=== PATIENT | female | born 1965 | race American Indian/Alaskan Native ===

== ENCOUNTER 2021-04-03 21:31 | Inpatient (IN) | payer MEDICARE ==
[2021-04-03] MEDS ORDERED: ASPIRIN 325 MG TAB PO ONE (23:58)
[2021-04-04] MEDS ORDERED: methylPREDNISolone Sod Succinate 125 MG/2 ML INJ IV ONE (00:50)
[2021-04-04] MEDS ORDERED: AZITHROMYCIN/NS 500 MG/250 ML 500 MG/250 ML BAG IV ONE (00:50)
[2021-04-04] MEDS ORDERED: cefTRIAXone/NS 2 GM/100 ML 2 GM/100 ML BAG IV ONE (00:50)
[2021-04-04] MEDS ORDERED: IPRATROPIUM/ALBUTEROL SULFATE 3 ML AMPUL.NEB IH ONE (00:50)
--- NOTE | 2021-04-04 00:51 | Emergency Department Report ---
ED Chest Pain HPI - General Chief Complaint: Dyspnea/Respdistress Stated Complaint: SERENITY;CHF;OXYGEN DEPENDENT PUI?: No Time Seen by Provider: 04/04/21 00:43 Source: patient Mode of arrival: Ambulatory Limitations: Other - History of Present Illness Initial Comments: Patient is a 55-year-old female that presents emergency room with complaints of chest pain, difficulty breathing, chills, cough, congestion. Patient states that her pain is a 5 out of 10. Patient states she has had part one of her COVID-19 vaccine. Patient complains of fever. Patient denies nausea vomiting. Patient states that her shortness of breath is better with rest and worse with exertion. Patient states she is on 4 L of oxygen at home. Patient states she has a history of CHF and COPD. Patient denies recent travel. Patient denies recent international travel. Patient denies exposure to the novel coronavirus. Patient denies sick contacts. Patient denies loss of smell.. Patient denies diarrhea. Patient denies coming in contact with anybody with symptoms of the novel coronavirus. MD Complaint: chest pain -: Sudden Onset: during rest Pain Location: left chest Pain Radiation: none Severity: severe Severity scale (0 -10): 10 Quality: sharp Consistency: constant Improves With: rest Worsens With: exertion, palpation, movement re: dyspnea. denies: nausea, vomting, diaphoresis Other Symptoms: cough, fever, palpitations. denies: syncope, rash, acid taste in mouth, leg swelling, burping Treatments Prior to Arrival: none Aspirin use within the Past 7 Days: (1) Yes - Related Data On Oral Contraceptives: No Home Medications Medication Instructions Recorded Confirmed Last Taken Norethindrone Acetate(Nf) 5 mg PO BID 08/01/13 06/11/20 12/08/19 10:00 [Aygestin (Nf)] Macitentan (Nf) [Opsumit (Nf)] 10 mg PO QDAY 02/13/14 06/11/20 12/08/19 10:00 Bumetanide [Bumex 1 mg tab] 1 mg PO DAILY 08/28/14 06/11/20 12/08/19 10:00 HYDROcodone/APAP 5-325 [[place] 5 mg PO Q6HR PRN 08/13/15 08/05/20 02/01/20 10:00 5-325 mg TAB] Omeprazole [PriLOSEC] 40 mg PO QDAY PRN 06/19/15 06/11/20 12/08/19 08:00 Zolpidem (Nf) [Ambien (Nf)] 10 mg PO QHS 06/19/15 06/11/20 Unknown Norethindrone Acetate [Aygestin] 5 mg PO DAILY 12/10/19 06/11/20 12/10/19 Macitentan [Opsumit] 10 mg PO QDAY 06/11/20 06/11/20 06/11/20 14:00 Potassium Chloride [K-Dur] 10 meq PO QDAY 06/11/20 06/11/20 06/11/20 14:00 Previous Rx's Medication Instructions Recorded Last Taken Type Ipratropium/Albuterol Sulfate 1 ampul IH Q6HRT #90 ampul.neb 12/11/19 Unknown Rx [DUONEB *Not for PRN Use*] Oseltamivir [Tamiflu] 75 mg PO BID #8 capsule 12/11/19 Unknown Rx ALPRAZolam [Xanax TAB] 0.5 mg PO BID #7 06/12/20 Unknown Rx Warfarin [Coumadin] 7.5 mg PO DAILY@1700 #10 tablet 06/12/20 Unknown Rx predniSONE [Deltasone] 40 mg PO QDAY #5 tablet 06/12/20 Unknown Rx Allergies Allergy/AdvReac Type Severity Reaction Status Date / Time No Known Allergies Allergy Verified 08/28/14 10:49 Heart Score - HEART Score History: Slightly suspicious EKG: Non-specific Age: 45-65 Risk factors: > 3 risk factors or hx of atherosclerotic disease Troponin: < normal limit HEART Score: 4 - EKG Read Time Time EKG Completed: 00:07 EKG Read Time: 00:09 ED Review of Systems ROS: Stated complaint: SERENITY;CHF;OXYGEN DEPENDENT Other details as noted in HPI Constitutional: chills, fever Eyes: denies: eye pain, eye discharge, vision change ENT: denies: ear pain, throat pain Respiratory: see HPI, cough, shortness of breath, SOB with exertion, SOB at rest. denies: wheezing Cardiovascular: as per HPI, chest pain. denies: palpitations Endocrine: no symptoms reported Gastrointestinal: denies: abdominal pain, nausea, diarrhea Genitourinary: denies: urgency, dysuria, discharge Musculoskeletal: denies: back pain, joint swelling, arthralgia Skin: denies: rash, lesions Neurological: denies: headache, weakness, paresthesias Psychiatric: denies: anxiety, depression Hematological/Lymphatic: denies: easy bleeding, easy bruising ED Past Medical Hx - Past Medical History Previous Medical History?: Yes Hx Hypertension: Yes Hx Heart Attack/AMI: No Hx Congestive Heart Failure: Yes Hx Diabetes: No Hx Deep Vein Thrombosis: No Hx Pulmonary Embolism: No Hx Sickle Cell Disease: No Hx Asthma: No Hx COPD: Yes Hx Tuberculosis: No Hx HIV: No Additional medical history: hx of a.fib, chronic anemia with transfusion - Surgical History Past Surgical History?: Yes Hx Coronary Stent: No Hx Open Heart Surgery: No Hx Pacemaker: No Hx Internal Defibrillator: No Hx Cholecystectomy: No Hx Appendectomy: No Hx Breast Surgery: No Additional Surgical History: Exploratory surgery 1999 - Family History Family history: no significant - Social History Smoking Status: Never Smoker Substance Use Type: None - Medications Home Medications: Home Medications Medication Instructions Recorded Confirmed Last Taken Type Norethindrone Acetate(Nf) 5 mg PO BID 08/01/13 06/11/20 12/08/19 10:00 History [Aygestin (Nf)] Macitentan (Nf) [Opsumit (Nf)] 10 mg PO QDAY 02/13/14 06/11/20 12/08/19 10:00 History Bumetanide [Bumex 1 mg tab] 1 mg PO DAILY 08/28/14 06/11/20 12/08/19 10:00 History HYDROcodone/APAP 5-325 [[place] 5 mg PO Q6HR PRN 06/19/15 06/11/20 12/08/19 10:00 History 5-325 mg TAB] Omeprazole [PriLOSEC] 40 mg PO QDAY PRN 06/19/15 06/11/20 12/08/19 08:00 History Zolpidem (Nf) [Ambien (Nf)] 10 mg PO QHS 06/19/15 06/11/20 Unknown History Norethindrone Acetate [Aygestin] 5 mg PO DAILY 12/10/19 06/11/20 12/10/19 History Ipratropium/Albuterol Sulfate 1 ampul IH Q6HRT #90 ampul.neb 12/11/19 06/11/20 Unknown Rx [DUONEB *Not for PRN Use*] Oseltamivir [Tamiflu] 75 mg PO BID #8 capsule 12/11/19 06/11/20 Unknown Rx Macitentan [Opsumit] 10 mg PO QDAY 06/11/20 06/11/20 06/11/20 14:00 History Potassium Chloride [K-Dur] 10 meq PO QDAY 06/11/20 06/11/20 06/11/20 14:00 History ALPRAZolam [Xanax TAB] 0.5 mg PO BID #7 06/12/20 Unknown Rx Warfarin [Coumadin] 7.5 mg PO DAILY@1700 #10 tablet 06/12/20 Unknown Rx predniSONE [Deltasone] 40 mg PO QDAY #5 tablet 06/12/20 Unknown Rx ED Physical Exam - General Limitations: Other General appearance: alert, in no apparent distress - Head Head exam: Present: atraumatic, normocephalic - Eye Eye exam: Present: normal appearance - ENT ENT exam: Present: mucous membranes moist - Neck Neck exam: Present: normal inspection - Respiratory Respiratory exam: Present: wheezes, rales, decreased breath sounds - Cardiovascular Cardiovascular Exam: Present: regular rate, normal rhythm. Absent: systolic murmur, diastolic murmur, rubs, gallop - GI/Abdominal GI/Abdominal exam: Present: soft, normal bowel sounds - Extremities Exam Extremities exam: Present: normal inspection - Back Exam Back exam: Present: normal inspection - Neurological Exam Neurological exam: Present: alert, oriented X3 - Psychiatric Psychiatric exam: Present: normal affect, normal mood - Skin Skin exam: Present: warm, dry, intact, normal color. Absent: rash ED Course Vital Signs 04/03/21 04/04/21 04/04/21 23:55 00:51 01:01 Temperature 99.7 F H Pulse Rate 96 H 88 85 Respiratory 18 22 24 Rate Blood Pressure 118/60 133/65 O2 Sat by Pulse 100 100 100 Oximetry 04/04/21 04/04/21 04/04/21 01:10 01:15 01:31 Temperature Pulse Rate 85 83 Respiratory 22 24 23 Rate Blood Pressure 131/63 117/63 O2 Sat by Pulse 98 97 Oximetry 05/04/04/21 04/04/21 02:01 03:01 04:01 Temperature Pulse Rate 88 129 H 130 H Respiratory 25 H 12 21 Rate Blood Pressure 122/67 135/63 107/53 O2 Sat by Pulse 91 89 94 Oximetry 04/04/21 04/04/21 04:26 04:41 Temperature 98.5 F 98.6 F Pulse Rate 79 74 Respiratory 20 20 Rate Blood Pressure 113/58 116/61 O2 Sat by Pulse 99 98 Oximetry - Reevaluation(s) Reevaluation #1: Patient is resting comfortably in bed. Patient's saturations improved on oxygen. 04/04/21 01:30 Reevaluation #2: I discussed all results with patient. I discussed plan of care with patient. Patient agrees with plan of care and admission. Patient to be admitted to the hospitalist service. 04/04/21 03:31 - Consultations Consultation #1: Hospitalist consulted for admission. Hospitalist to admit patient. 04/04/21 03:31 Consultation #2: ID consulted. 04/04/21 03:31 MAGI score - Magi Score Age > 65: (0) No Aspirin use within the Past 7 Days: (0) No 3 or more CAD Risk Factors: (0) No 2 or more Angina events in past 24 hrs: (0) No Known CAD with more than 50% Stenosis: (0) No Elevated Cardiac Markers: (0) No ST Deviation Greater than 0.5mm: (0) No MAGI Score: 0 ED Medical Decision Making - Lab Data Result diagrams: 04/04/21 00:27 04/04/21 03:30 - EKG Data -: EKG Interpreted by Me EKG shows normal: sinus rhythm, axis, intervals, QRS complexes, ST-T waves Rate: normal - Radiology Data Radiology results: report reviewed, image reviewed interpreted by me: Chest x-ray: No pneumonia, no pneumothorax, no foreign body, no osseous findings, no acute findings CHEST 1 VIEW INDICATION: chestpain COMPARISON: 06/10/2020 FINDINGS: SUPPORT DEVICES: None. HEART / MEDIASTINUM: No significant abnormality. Dilatation of the pulmonary arteries are again noted LUNGS / PLEURA: No significant pulmonary or pleural abnormality. No pneumothorax. ADDITIONAL FINDINGS: IMPRESSION: 1. Pulmonary arterial hypertension is a concern unchanged from previous exam - Medical Decision Making Patient is a 55-year-old female presents emergency room with complaints of chest pain and shortness of breath. Patient has a history of COPD and CHF. Patient Solu-Medrol. Patient is currently on treatment. Patient also complained of fever and cough. Patient given Ceftin Zithromax. Patient had a Covid panel done. ID was consulted. Patient had labs done which were essentially unremarkable except for elevated Covid markers and anemia.. Patient's BNP was negative patient's troponin was negative. Patient's chest x-ray is negative for acute findings. Patient had an EKG done. Patient's EKG shows no acute findings and normal ST. I personally reviewed the EKG and the x-rays. Patient/family hypoxic patient was placed on fibrillation O2. Patient's normal state for years. Patient typed and screen for 1 unit. Critical care time documented due to the multiple reassessments, prolonged time at the bedside, interpretation of diagnostics and labs. - Differential Diagnosis COPD exacerbation, ACS, chest pain, SoB, hypoxia, CHF exacerbation Critical Care Time: Yes Critical care time in (mins) excluding proc time.: 35 Critical care attestation.: If time is entered above; I have spent that time in minutes in the direct care of this critically ill patient, excluding procedure time. Critical Care Time: 35 minutes ED Disposition Clinical Impression: SOB (shortness of breath), Hypoxia, COPD exacerbation, Person under inve stigation for COVID-19, Cough Anemia Qualifiers: Anemia type: unspecified type Qualified Code(s): D64.9 - Anemia, unspecified Chest pain Qualifiers: Chest pain type: unspecified Qualified Code(s): R07.9 - Chest pain, unspecified Fever Qualifiers: Fever type: unspecified Qualified Code(s): R50.9 - Fever, unspecified Disposition: OP ADMIT IP TO THIS HOSP Is pt being admited?: Yes Does the pt Need Aspirin: No Condition: Critical Time of Disposition: 03:30
[2021-04-04 01:01] LABS: Mean Corpuscular HGB Conc 28 % (30-34); Red Blood Count 4.12 M/mm3 (3.65-5.03)
[2021-04-04 01:03] LABS: Hematocrit 25.3 % (30.3-42.9); Mean Corpuscular Volume 61 fl (79-97); Platelet Count 87 K/mm3 (140-440); Red Cell Distribution Width 31.6 % (13.2-15.2)
--- NOTE | 2021-04-04 01:17 | XRay Report ---
CHEST 1 VIEW INDICATION: chestpain COMPARISON: 06/10/2020 FINDINGS: SUPPORT DEVICES: None. HEART / MEDIASTINUM: No significant abnormality. Dilatation of the pulmonary arteries are again noted LUNGS / PLEURA: No significant pulmonary or pleural abnormality. No pneumothorax. ADDITIONAL FINDINGS: IMPRESSION: 1. Pulmonary arterial hypertension is a concern unchanged from previous exam Signer Name: Jn Naqvi MD Signed: 04/04/2021 1:13 AM Workstation Name: [id number]
[2021-04-04 01:25] LABS: Alanine Aminotransferase 12 units/L (7-56); BUN/Creatinine Ratio 11; Blood Urea Nitrogen 10 mg/dL (7-17); Hemolysis Index 0
[2021-04-04 01:42] LABS: Total Cells Counted 100
[2021-04-04 01:43] LABS: Anisocytosis 3+; Hypochromasia 3+
[2021-04-04 01:44] LABS: Large Platelets Few; Ovalocytes Few; Platelet Estimate Consistent w Auto; Poikilocytosis 1+; Tear Drop Cells Rare
[2021-04-04] MEDS ORDERED: SODIUM CHLORIDE 0.9% 500 ML 500 ML IV ONE (03:26)
[2021-04-04] MEDS ORDERED: ACETAMINOPHEN 325 MG TAB PO PRN (03:55)
[2021-04-04] MEDS ORDERED: ALBUTEROL 2.5 MG/3 ML NEBU IH PRN (03:55)
[2021-04-04] MEDS ORDERED: ONDANSETRON 4 MG/2 ML INJ IV PRN (03:55)
[2021-04-04] MEDS ORDERED: hydrALAZINE 20 MG/1 ML INJ IV PRN (03:58)
[2021-04-04] MEDS ORDERED: cefTRIAXone/NS 2 GM/100 ML 2 GM/100 ML BAG IV SCH (04:00)
--- NOTE | 2021-04-04 04:08 | History and Physical Report ---
History of Present Illness Date of examination: 04/04/21 Date of admission: 04/04/21 03:28 Chief complaint: Dyspnea Respiratory distress History of present illness: 55-year-old female with past medical history of CHF and COPD was brought to the emergency room with complaints of chest pain, difficulty breathing, chills, cough, congestion for the last couple of days. patient chest pain is a 5 out of 10. Patient states she has had part one of her COVID-19 vaccine. Patient complains of fever. Patient denies nausea vomiting. Patient states that her shortness of breath is better with rest and worse with exertion. Patient states she is on 4 L of oxygen at home. In the emergency room patient is found to have acute COPD exacerbation also patient is admitted for PUI. Also patient hemoglobin is 7.0 and hematocrit 25.3 Past History Past Medical History: COPD, heart failure Medications and Allergies Allergies Allergy/AdvReac Type Severity Reaction Status Date / Time No Known Allergies Allergy Verified 08/28/14 10:49 Home Medications Medication Instructions Recorded Confirmed Last Taken Type Norethindrone Acetate(Nf) 5 mg PO BID 08/01/13 06/11/20 12/08/19 10:00 History [Aygestin (Nf)] Macitentan (Nf) [Opsumit (Nf)] 10 mg PO QDAY 02/13/14 06/11/20 12/08/19 10:00 History Bumetanide [Bumex 1 mg tab] 1 mg PO DAILY 08/28/14 06/11/20 12/08/19 10:00 History HYDROcodone/APAP 5-325 [[place] 5 mg PO Q6HR PRN 06/19/15 06/11/20 12/08/19 10:00 History 5-325 mg TAB] Omeprazole [PriLOSEC] 40 mg PO QDAY PRN 06/19/15 06/11/20 12/08/19 08:00 History Zolpidem (Nf) [Ambien (Nf)] 10 mg PO QHS 06/19/15 06/11/20 Unknown History Norethindrone Acetate [Aygestin] 5 mg PO DAILY 12/10/19 06/11/20 12/10/19 History Ipratropium/Albuterol Sulfate 1 ampul IH Q6HRT #90 ampul.neb 12/11/19 06/11/20 Unknown Rx [DUONEB *Not for PRN Use*] Oseltamivir [Tamiflu] 75 mg PO BID #8 capsule 12/11/19 06/11/20 Unknown Rx Macitentan [Opsumit] 10 mg PO QDAY 06/11/20 06/11/20 06/11/20 14:00 History Potassium Chloride [K-Dur] 10 meq PO QDAY 06/11/20 06/11/20 06/11/20 14:00 History ALPRAZolam [Xanax TAB] 0.5 mg PO BID #7 06/12/20 Unknown Rx Warfarin [Coumadin] 7.5 mg PO DAILY@1700 #10 tablet 06/12/20 Unknown Rx predniSONE [Deltasone] 40 mg PO QDAY #5 tablet 06/12/20 Unknown Rx Review of Systems Constitutional: chills Cardiovascular: shortness of breath, dyspnea on exertion Respiratory: cough, shortness of breath, dyspnea on exertion, congestion Exam - Constitutional Vitals: Temp Pulse Resp BP Pulse Ox 99.7 F H 129 H 12 135/63 89 04/03/21 23:55 04/04/21 03:01 04/04/21 03:01 04/04/21 03:01 04/04/21 03:01 General appearance: Present: no acute distress, well-nourished - EENT Eyes: Present: PERRL ENT: hearing intact, clear oral mucosa - Neck Neck: Present: supple, normal ROM - Respiratory Respiratory effort: normal Respiratory: bilateral: diminished - Cardiovascular Heart Sounds: Present: S1 & S2. Absent: rub, click - Extremities Extremities: pulses symmetrical, No edema Peripheral Pulses: within normal limits - Abdominal General gastrointestinal: Present: soft, non-tender, non-distended, normal bowel sounds Female genitourinary: Present: normal - Integumentary Integumentary: Present: clear, warm, dry - Musculoskeletal Musculoskeletal: gait normal, strength equal bilaterally - Psychiatric Psychiatric: appropriate mood/affect, intact judgment & insight - Neurologic Neurologic: CNII-XII intact, moves all extremities HEART Score - HEART Score EKG: Non-specific Age: 45-65 Risk factors: > 3 risk factors or hx of atherosclerotic disease Troponin: Troponin T 0.017 ng/mL (0.00-0.029) 04/04/21 01:52 Troponin: < normal limit Results - Labs CBC & Chem 7: 04/04/21 00:27 04/04/21 00:27 Labs: Laboratory Last Values WBC 8.9 K/mm3 (4.5-11.0) 04/04/21 00: RBC 4.12 M/mm3 (3.65-5.03) 04/04/21 00: Hgb 7.0 gm/dl (10.1-14.3) L 04/04/21 00: Hct 25.3 % (30.3-42.9) L 04/04/21 00: MCV 61 fl (79-97) L 04/04/21 00: MCH 17 pg (28-32) L 04/04/21 00: MCHC 28 % (30-34) L 04/04/21 00: RDW 31.6 % (13.2-15.2) H 04/04/21 00: Plt Count 87 K/mm3 (140-440) L 04/04/21 00:27 Add Manual Diff Complete 04/04/21 00: Total Counted 100 04/04/21 00:27 Seg Neuts % (Manual) 90.0 % (40.0-70.0) H 04/04/21 00:27 Lymphocytes % (Manual) 5.0 % (13.4-35.0) L 04/04/21 00:27 Monocytes % (Manual) 5.0 % (0.0-7.3) 04/04/21 00:27 Nucleated RBC % Not Reportable 04/04/21 00: Seg Neutrophils # Man 8.0 K/mm3 (1.8-7.7) H 04/04/21 00:27 Band Neutrophils # 0.0 K/mm3 04/04/21 00:27 Lymphocytes # (Manual) 0.4 K/mm3 (1.2-5.4) L 04/04/21 00:27 Abs React Lymphs (Man) 0.0 K/mm3 04/04/21 00:27 Monocytes # (Manual) 0.4 K/mm3 (0.0-0.8) 04/04/21 00:27 Eosinophils # (Manual) 0.0 K/mm3 (0.0-0.4) 04/04/21 00:27 Basophils # (Manual) 0.0 K/mm3 (0.0-0.1) 04/04/21 00:27 Metamyelocytes # 0.0 K/mm3 04/04/21 00:27 Myelocytes # 0.0 K/mm3 04/04/21 00:27 Promyelocytes # 0.0 K/mm3 04/04/21 00:27 Blast Cells # 0.0 K/mm3 04/04/21 00:27 WBC Morphology Not Reportable 04/04/21 00:27 Hypersegmented Neuts Not Reportable 04/04/21 00:27 Hyposegmented Neuts Not Reportable 04/04/21 00:27 Hypogranular Neuts Not Reportable 04/04/21 00:27 Smudge Cells Not Reportable 04/04/21 00:27 Toxic Granulation Not Reportable 04/04/21 00:27 Toxic Vacuolation Not Reportable 04/04/21 00:27 Dohle Bodies Not Reportable 04/04/21 00:27 Pelger-Huet Anomaly Not Reportable 04/04/21 00:27 Fina Rods Not Reportable 04/04/21 00:27 Platelet Estimate Consistent w auto 04/04/21 00:27 Clumped Platelets Not Reportable 04/04/21 00:27 Plt Clumps, EDTA Not Reportable 04/04/21 00:27 Large Platelets Few 04/04/21 00:27 Giant Platelets Not Reportable 04/04/21 00:27 Platelet Satelliting Not Reportable 04/04/21 00:27 Plt Morphology Comment Not Reportable 04/04/21 00:27 RBC Morphology Not Reportable 04/04/21 00:27 Dimorphic RBCs Not Reportable 04/04/21 00:27 Polychromasia Few 04/04/21 00:27 Hypochromasia 3+ 04/04/21 00:27 Poikilocytosis 1+ 04/04/21 00:27 Anisocytosis 3+ 04/04/21 00:27 Microcytosis 2+ 04/04/21 00:27 Macrocytosis Not Reportable 04/04/21 00:27 Spherocytes Not Reportable 04/04/21 00:27 Pappenheimer Bodies Not Reportable 04/04/21 00:27 Sickle Cells Not Reportable 04/04/21 00:27 Target Cells Not Reportable 04/04/21 00:27 Tear Drop Cells Rare 04/04/21 00:27 Ovalocytes Few 04/04/21 00:27 Helmet Cells Not Reportable 04/04/21 00:27 [place] Bodies Not Reportable 04/04/21 00:27 [place] Rings Not Reportable 04/04/21 00:27 [place] Cells Not Reportable 04/04/21 00:27 Bite Cells Not Reportable 04/04/21 00:27 Crenated Cell Not Reportable 04/04/21 00:27 Elliptocytes Few 04/04/21 00:27 Acanthocytes (Spur) Not Reportable 04/04/21 00:27 Rouleaux Not Reportable 04/04/21 00:27 Hemoglobin C Crystals Not Reportable 04/04/21 00:27 Schistocytes Not Reportable 04/04/21 00:27 Malaria parasites Not Reportable 04/04/21 00:27 Maximiliano Bodies Not Reportable 04/04/21 00:27 Hem Pathologist Commnt No 04/04/21 00:27 Sodium 137 mmol/L (137-145) 04/04/21 00:27 Potassium 4.0 mmol/L (3.6-5.0) 04/04/21 00:27 Chloride 101.6 mmol/L (98-107) 04/04/21 00:27 Carbon Dioxide 26 mmol/L (22-30) 04/04/21 00:27 Anion Gap 13 mmol/L 04/04/21 00:27 BUN 10 mg/dL (7-17) 04/04/21 00:27 Creatinine 0.9 mg/dL (0.6-1.2) 04/04/21 00:27 Estimated GFR > 60 ml/min 04/04/21 00:27 BUN/Creatinine Ratio 11 % 04/04/21 00:27 Glucose 96 mg/dL (65-100) 04/04/21 00:27 Calcium 9.0 mg/dL (8.4-10.2) 04/04/21 00:27 Total Bilirubin 0.70 mg/dL (0.1-1.2) 04/04/21 00:27 AST 14 units/L (5-40) 04/04/21 00:27 ALT 12 units/L (7-56) 04/04/21 00:27 Alkaline Phosphatase 61 units/L (35-129) 04/04/21 00:27 Troponin T 0.017 ng/mL (0.00-0.029) 04/04/21 01:52 NT-Pro-B Natriuret Pep 293.6 pg/mL (0-900) 04/04/21 01:52 Total Protein 8.0 g/dL (6.3-8.2) 04/04/21 00:27 Albumin 4.0 g/dL (3.9-5) 04/04/21 00:27 Albumin/Globulin Ratio 1.0 % 04/04/21 00:27 Blood Type O POSITIVE 04/04/21 01:52 Antibody Screen Not Reportable 04/04/21 01:52 LUCIO Antibody Screen Negative 04/04/21 01:52 Crossmatch See Detail 04/04/21 01:52 - Imaging and Cardiology Chest x-ray: report reviewed Assessment and Plan VTE prophylaxis?: Chemical Plan of care discussed with patient/family: Yes - Patient Problems (1) COPD exacerbation Current Visit: Yes Status: Acute Plan to address problem: Admit the patient to the medical floor. Oxygen by nasal cannula 3 to per minute. DuoNeb by nebulizer every 4 hours as needed. Rocephin 2 g IV daily and Zithromax 500 mg IV daily. Dexamethasone 6 mg IV daily. Due to the blood culture sputum (2) Person under investigation for COVID-19 Current Visit: Yes Status: Acute Plan to address problem: Oxygen by nasal cannula 3 to per minute. DuoNeb by nebulizer every 4 hours as needed. Rocephin 2 g IV daily and Zithromax 500 mg IV daily. Dexamethasone 6 mg IV daily. Due to the blood culture sputum. Follow the Covid inflammatory marker. And Covid PCR. Will consult infectious disease evaluation (3) CHF (congestive heart failure) Current Visit: Yes Status: Acute Plan to address problem: Stable we will continue the Bumex 1 mg p.o. daily. Fluid restriction. We will monitor the patient closely (4) Chest pain Current Visit: Yes Status: Acute Qualifiers: Chest pain type: unspecified Qualified Code(s): R07.9 - Chest pain, unspecified Plan to address problem: Patient is on warfarin 7.5 mg p.o. daily. We will put the patient on Lipitor 20 mg p.o. daily. We will do the serial cardiac enzyme. If needed we can consult cardiology in the morning (5) Hypoxia Current Visit: Yes Status: Acute Plan to address problem: Oxygen by nasal cannula 3 to per minute. DuoNeb by nebulizer every 4 hours as needed. Rocephin 2 g IV daily and Zithromax 500 mg IV daily. Dexamethasone 6 mg IV daily. Due to the blood culture sputum (6) Anemia Current Visit: Yes Status: Acute Qualifiers: Anemia type: unspecified type Qualified Code(s): D64.9 - Anemia, unspecified Plan to address problem: Patient is getting 1 unit of packed red blood cell. We will put the patient on omeprazole 40 mg p.o. daily. Recheck CBC in the morning. If needed will consult GI (7) DVT prophylaxis Current Visit: Yes Status: Acute Plan to address problem: Warfarin 7.5 mg p.o. daily for the DVT prophylaxis. Omeprazole 40 mg p.o. daily for GI prophylaxis. Patient is a full code
[2021-04-04 05:06] LABS: C-Reactive Protein 9.7 mg/dL (0.00-1.30)
[2021-04-04] MEDS: IPRATROPIUM/ALBUTEROL SULFATE 3 ML AMPUL.NEB IH SCH ×3 (07:39→19:37)
[2021-04-04] MEDS ORDERED: NORETHINDRONE ACETATE 5 MG PO SCH (10:00)
[2021-04-04] MEDS ORDERED: AZITHROMYCIN/NS 500 MG/250 ML 500 MG/250 ML BAG IV SCH (10:00)
[2021-04-04] MEDS ORDERED: MACITENTAN 10 MG PO SCH ×2 (10:00)
[2021-04-04] MEDS ORDERED: FAMOTIDINE 20 MG TAB PO SCH (10:00)
[2021-04-04] MEDS ORDERED: OSELTAMIVIR 75 MG CAP PO SCH (10:00)
[2021-04-04] MEDS: PANTOPRAZOLE 40 MG TAB PO PRN (11:07)
[2021-04-04] MEDS: cefTRIAXone/NS 2 GM/100 ML 2 GM/100 ML BAG IV SCH ×2 (11:07→14:12)
[2021-04-04] MEDS: ALPRAZolam 0.5 MG TAB PO SCH ×2 (11:08→21:51)
[2021-04-04] MEDS: dexAMETHasone 4 MG/ML VIAL IV SCH (11:08)
[2021-04-04] MEDS: POTASSIUM CHLORIDE ER 10 MEQ TAB PO SCH (11:08)
[2021-04-04] MEDS: BUMETANIDE 1 MG TAB PO SCH ×2 (11:09→13:30)
--- NOTE | 2021-04-04 11:28 | Consultation ---
History of Present Illness - Reason for Consult Consult date: 04/04/21 COVID PUI Requesting physician: KHUSHBU GRACE III - History of Present Illness The patient is a 55-year-old female with CHF and COPD was admitted last night after she presented with chest pressure, chills, cough, shortness of breath going on for 2 days. Upon evaluation in the ER, found to have a low-grade fever and hypoxia, she uses home oxygen. She was admitted to the hospital as a COVID- 19 PUI, test is still pending at this time. Patient is status post first vaccine shot for COVID-19. Currently, receiving a blood transfusion due to anemia noted on labs. Feels well. Labs with WBC 8.9, D-dimer 344, CRP 9.7, ferritin 8.6, procalcitonin 0.07. Review of Systems: General: no fevers,chills or rigors HEENT: no new visual disturbance Respiratory: Cough and shortness of breath with chest pressure Cardiovascular: No chest pain, syncope Gastrointestinal: No nausea, vomiting or diarrhea Genitourinary: No dysuria or hematuria Musculoskeletal: No new or worsening neck pain or back pain Neurologic: No headaches, seizures Hematologic: No easy bruising or bleeding Endocrine: No night sweats or acute weight loss Skin: negative for rash, jaundice Psychiatric: No suicidal or homicidal ideation Past History Past Medical History: COPD, heart failure Medications and Allergies Allergies Allergy/AdvReac Type Severity Reaction Status Date / Time No Known Allergies Allergy Verified 08/28/14 10:49 Home Medications Medication Instructions Recorded Confirmed Last Taken Type Norethindrone Acetate(Nf) 5 mg PO BID 08/01/13 06/11/20 12/08/19 10:00 History [Aygestin (Nf)] Macitentan (Nf) [Opsumit (Nf)] 10 mg PO QDAY 02/13/14 06/11/20 12/08/19 10:00 History Bumetanide [Bumex 1 mg tab] 1 mg PO DAILY 08/28/14 06/11/20 12/08/19 10:00 History HYDROcodone/APAP 5-325 [[place] 5 mg PO Q6HR PRN 06/19/15 06/11/20 12/08/19 10:00 History 5-325 mg TAB] Omeprazole [PriLOSEC] 40 mg PO QDAY PRN 06/19/15 06/11/20 12/08/19 08:00 History Zolpidem (Nf) [Ambien (Nf)] 10 mg PO QHS 06/19/15 06/11/20 Unknown History Norethindrone Acetate [Aygestin] 5 mg PO DAILY 12/10/19 06/11/20 12/10/19 History Ipratropium/Albuterol Sulfate 1 ampul IH Q6HRT #90 ampul.neb 12/11/19 06/11/20 Unknown Rx [DUONEB *Not for PRN Use*] Oseltamivir [Tamiflu] 75 mg PO BID #8 capsule 12/11/19 06/11/20 Unknown Rx Macitentan [Opsumit] 10 mg PO QDAY 06/11/20 06/11/20 06/11/20 14:00 History Potassium Chloride [K-Dur] 10 meq PO QDAY 06/11/20 06/11/20 06/11/20 14:00 History ALPRAZolam [Xanax TAB] 0.5 mg PO BID #7 06/12/20 Unknown Rx Warfarin [Coumadin] 7.5 mg PO DAILY@1700 #10 tablet 06/12/20 Unknown Rx predniSONE [Deltasone] 40 mg PO QDAY #5 tablet 06/12/20 Unknown Rx Active Meds: Active Medications Acetaminophen (Acetaminophen 325 Mg Tab) 650 mg PO Q4H PRN PRN Reason: Pain MILD(1-3)/Fever >100.5/[facility] Albuterol (Albuterol 2.5 Mg/3 Ml Nebu) 2.5 mg IH Q4HRT PRN PRN Reason: Shortness Of Breath Albuterol/Ipratropium (Ipratropium/Albuterol Sulfate 3 Ml Ampul.Neb) 1 ampul IH Q6HRT [facility] Last Admin: 04/04/21 07:39 Dose: 1 ampul Documented by: Alprazolam (Alprazolam 0.5 Mg Tab) 0.5 mg PO BID [facility] Last Admin: 04/04/21 11:08 Dose: 0.5 mg Documented by: Bumetanide (Bumetanide 1 Mg Tab) 1 mg PO DAILY [facility] Last Admin: 04/04/21 11:09 Dose: Not Given Documented by: Dexamethasone (Dexamethasone 4 Mg/Ml Vial) 6 mg IV DAILY [facility] Last Admin: 04/04/21 11:08 Dose: 6 mg Documented by: Hydralazine HCl (Hydralazine 20 Mg/1 Ml Inj) 10 mg IV Q6H PRN PRN Reason: htn Azithromycin (Zithromax/Ns) 500 mg in 250 mls @ 250 mls/hr IV Q24H [facility]; Protocol Ceftriaxone Sodium (Rocephin/Ns 2 Gm/100 Ml) 2 gm in 100 mls @ 200 mls/hr IV Q24H [facility]; Protocol Miscellaneous Medication (Macitentan (Nf)) 10 mg PO QDAY [facility] Miscellaneous Medication (Norethindrone Acetate [Aygestin]) 5 mg PO DAILY [facility] Ondansetron HCl (Ondansetron 4 Mg/2 Ml Inj) 4 mg IV Q8H PRN PRN Reason: Nausea And Vomiting Oseltamivir Phosphate (Oseltamivir 75 Mg Cap) 75 mg PO BID [facility] Last Admin: 04/04/21 11:26 Dose: Not Given Documented by: Pantoprazole Sodium (Pantoprazole 40 Mg Tab) 40 mg PO QDAY PRN PRN Reason: Gas pain Last Admin: 04/04/21 11:07 Dose: 40 mg Documented by: Potassium Chloride (Potassium Chloride Er 10 Meq Tab) 10 meq PO QDAY [facility] Last Admin: 04/04/21 11:08 Dose: 10 meq Documented by: Sodium Chloride (Sodium Chloride 0.9% 10 Ml Flush Syringe) 10 ml IV BID [facility] Last Admin: 04/04/21 11:09 Dose: 10 ml Documented by: Sodium Chloride (Sodium Chloride 0.9% 10 Ml Flush Syringe) 10 ml IV PRN PRN PRN Reason: LINE FLUSH Warfarin Sodium (Warfarin 7.5 Mg Tab) 7.5 mg PO DAILY@1700 [facility]; Protocol Zolpidem Tartrate (Zolpidem 5 Mg Tab) 10 mg PO QHS [facility] Physical Examination - Physical Exam Narrative exam: Physical Exam: Constitutional: Alert, cooperative. No acute distress Head, Ears, Nose: Normocephalic, atraumatic. External ears, nose normal Eyes: Conjunctivae/corneas clear. No icterus. No ptosis. Neck: Supple, no meningeal signs Cardiovascular: S1, S2 normal. Respiratory: Bilateral rhonchi GI: Soft, non-tender; bowel sounds normal. No peritoneal signs Musculoskeletal: No pedal edema, no cyanosis. Skin: No rash or abscess Hem/Lymphatic: No palpable cervical or supraclavicular nodes. No lymphangitis Psych: Mood ok. Affect normal Neurological: Awake, alert, oriented. No gross abnormality - Constitutional Vitals: Vital Signs Temp Pulse Resp BP Pulse Ox 98.9 F 90 20 119/57 94 04/04/21 06:11 04/04/21 07:46 04/04/21 07:46 04/04/21 06:11 04/04/21 07:46 Temperature -Last 24 Hours Temperature 98.9 F Temperature 99 F Temperature 98.6 F Temperature 98.5 F Temperature 99.7 F Results - Labs CBC & Chem 7: 04/04/21 00:27 04/04/21 03:30 Labs: Abnormal lab results 04/04/21 04/04/21 04/04/21 Range/Units 00:27 01:52 03:30 Hgb 7.0 L (10.1-14.3) gm/dl Hct 25.3 L (30.3-42.9) % MCV 61 L (79-97) fl MCH 17 L (28-32) pg MCHC 28 L (30-34) % RDW 31.6 H (13.2-15.2) % Plt Count 87 L (140-440) K/mm3 Seg Neuts % (Manual) 90.0 H (40.0-70.0) % Lymphocytes % (Manual) 5.0 L (13.4-35.0) % Seg Neutrophils # Man 8.0 H (1.8-7.7) K/mm3 Lymphocytes # (Manual) 0.4 L (1.2-5.4) K/mm3 D-Dimer 344.13 H (0-234) ng/mlDDU Ferritin (10.0-200.0) ng/mL Lactate Dehydrogenase (91-180) units/L C-Reactive Protein (0.00-1.30) mg/dL Crossmatch See Detail 04/04/21 04/04/21 Range/Units 03:30 03:30 Hgb (10.1-14.3) gm/dl Hct (30.3-42.9) % MCV (79-97) fl MCH (28-32) pg MCHC (30-34) % RDW (13.2-15.2) % Plt Count (140-440) K/mm3 Seg Neuts % (Manual) (40.0-70.0) % Lymphocytes % (Manual) (13.4-35.0) % Seg Neutrophils # Man (1.8-7.7) K/mm3 Lymphocytes # (Manual) (1.2-5.4) K/mm3 D-Dimer (0-234) ng/mlDDU Ferritin 8.6 L (10.0-200.0) ng/mL Lactate Dehydrogenase 230 H (91-180) units/L C-Reactive Protein 9.70 H (0.00-1.30) mg/dL Crossmatch - Imaging and Cardiology Chest x-ray: report reviewed, image reviewed (no obvious pneumonia seen) Assessment and Plan Cultures: SARS CoV2 PCR: Pending A/P: 55-year-old female with CHF and COPD: #COVID-19 PUI: Patient is status post first Covid vaccine. #Acute on chronic hypoxic respiratory failure: #COPD with acute exacerbation #Anemia: Getting blood transfusion Recs: Procalcitonin is low, antibiotics not needed Follow-up COVID-19 PCR, if positive, would start her on remdesivir steroids per primary for COPD exacerbation Jerad Jackson MD, FACP [facility] ([facility]) O: [phone] F: [phone]
[2021-04-04 13:58] LABS: INR 1.2 (0.87-1.13)
--- NOTE | 2021-04-04 14:29 | Progress Note ---
Assessment and Plan - Patient Problems (1) Acute respiratory failure with hypoxia Current Visit: Yes Status: Acute Plan to address problem: Patient on 6 L nasal cannula oxygen Continue IV steroids and IV antibiotics and duo nebs [id number] and as needed (2) COPD exacerbation Current Visit: Yes Status: Acute Plan to address problem: IV steroids IV Levaquin and duo nebs [id number] and as needed BiPAP if necessary Intubation if necessary (3) CHF (congestive heart failure) Current Visit: Yes Status: Chronic Qualifiers: Heart failure type: combined systolic and diastolic Plan to address problem: Continue Bumex and potassium (4) Person under investigation for COVID-19 Current Visit: Yes Status: Acute Plan to address problem: Covid negative (5) GERD (gastroesophageal reflux disease) Current Visit: Yes Status: Chronic Qualifiers: Esophagitis presence: without esophagitis Qualified Code(s): K21.9 - Gastro-esophageal reflux disease without esophagitis Plan to address problem: Continue PPIs (6) Hypertension Current Visit: Yes Status: Chronic Qualifiers: Hypertension type: essential hypertension Qualified Code(s): I10 - Essential (primary) hypertension Plan to address problem: Continue antihypertensives (7) DVT prophylaxis Current Visit: No Status: Acute Plan to address problem: On heparin and GI prophylaxis Subjective Date of service: 04/04/21 Principal diagnosis: COPD exacerbation and acute respiratory failure Interval history: 55-year-old female with past medical history of CHF and COPD was brought to the emergency room with complaints of chest pain, difficulty breathing, chills, cough, congestion for the last couple of days. patient chest pain is a 5 out of 10. Patient states she has had part one of her COVID-19 vaccine. Patient complains of fever. Patient denies nausea vomiting. Patient states that her shortness of breath is better with rest and worse with exertion. Patient states she is on 4 L of oxygen at home. In the emergency room patient is found to have acute COPD exacerbation also patient is admitted for PUI. Also patient hemoglobin is 7.0 and hematocrit 25.3 04/04/2020 Patient still severely short of breath Objective - Constitutional Vitals: Vital Signs - 12hr 04/04/21 04/04/21 04/04/21 03:01 04:01 04:26 Temperature 98.5 F Pulse Rate 129 H 130 H 79 Pulse Rate [ Anterior Bilateral Throughout] Respiratory 12 21 20 Rate Respiratory Rate [Anterior Bilateral Throughout] Blood Pressure 135/63 107/53 113/58 O2 Sat by Pulse 89 94 99 Oximetry 04/04/21 04/04/21 04/04/21 04:41 05:01 05:11 Temperature 98.6 F Pulse Rate 74 106 H 73 Pulse Rate [ Anterior Bilateral Throughout] Respiratory 20 20 22 Rate Respiratory Rate [Anterior Bilateral Throughout] Blood Pressure 116/61 116/61 122/54 O2 Sat by Pulse 98 100 100 Oximetry 04/04/21 04/04/21 04/04/21 05:37 05:41 06:09 Temperature 99 F Pulse Rate 77 76 Pulse Rate [ Anterior Bilateral Throughout] Respiratory 20 20 20 Rate Respiratory Rate [Anterior Bilateral Throughout] Blood Pressure 122/52 122/52 O2 Sat by Pulse 97 97 97 Oximetry 04/04/21 04/04/21 06:11 07:46 Temperature 98.9 F Pulse Rate 85 Pulse Rate [ 90 Anterior Bilateral Throughout] Respiratory 20 Rate Respiratory 20 Rate [Anterior Bilateral Throughout] Blood Pressure 119/57 O2 Sat by Pulse 96 94 Oximetry General appearance: Present: no acute distress, well-nourished - EENT Eyes: PERRL, EOM intact ENT: hearing intact, clear oral mucosa Ears: bilateral: normal - Neck Neck: supple, normal ROM - Respiratory Respiratory effort: normal Respiratory: bilateral: CTA, rhonchi, wheezing - Breasts Breasts: normal - Cardiovascular Heart rate: 78 Rhythm: regular Heart Sounds: Present: S1 & S2. Absent: gallop, rub Extremities: pulses intact, No edema, normal color, Full ROM - Gastrointestinal General gastrointestinal: Present: soft, non-tender, non-distended, normal bowel sounds - Genitourinary Female genitourinary: normal - Integumentary Integumentary: clear, warm, dry - Musculoskeletal Musculoskeletal: 1, strength equal bilaterally - Neurologic Neurologic: moves all extremities - Psychiatric Psychiatric: memory intact, appropriate mood/affect, intact judgment & insight - Labs CBC & Chem 7: 04/05/21 03:51 04/05/21 03:51 Labs: Abnormal lab results 04/04/21 04/04/21 04/04/21 Range/Units 00:27 01:52 03:30 Hgb 7.0 L (10.1-14.3) gm/dl Hct 25.3 L (30.3-42.9) % MCV 61 L (79-97) fl MCH 17 L (28-32) pg MCHC 28 L (30-34) % RDW 31.6 H (13.2-15.2) % Plt Count 87 L (140-440) K/mm3 Seg Neuts % (Manual) 90.0 H (40.0-70.0) % Lymphocytes % (Manual) 5.0 L (13.4-35.0) % Seg Neutrophils # Man 8.0 H (1.8-7.7) K/mm3 Lymphocytes # (Manual) 0.4 L (1.2-5.4) K/mm3 PT (12.2-14.9) Sec. INR (0.87-1.13) D-Dimer 344.13 H (0-234) ng/mlDDU Ferritin (10.0-200.0) ng/mL Lactate Dehydrogenase (91-180) units/L C-Reactive Protein (0.00-1.30) mg/dL Crossmatch See Detail 04/04/21 04/04/21 04/04/21 Range/Units 03:30 03:30 13:31 Hgb (10.1-14.3) gm/dl Hct (30.3-42.9) % MCV (79-97) fl MCH (28-32) pg MCHC (30-34) % RDW (13.2-15.2) % Plt Count (140-440) K/mm3 Seg Neuts % (Manual) (40.0-70.0) % Lymphocytes % (Manual) (13.4-35.0) % Seg Neutrophils # Man (1.8-7.7) K/mm3 Lymphocytes # (Manual) (1.2-5.4) K/mm3 PT 15.2 H (12.2-14.9) Sec. INR 1.20 H (0.87-1.13) D-Dimer (0-234) ng/mlDDU Ferritin 8.6 L (10.0-200.0) ng/mL Lactate Dehydrogenase 230 H (91-180) units/L C-Reactive Protein 9.70 H (0.00-1.30) mg/dL Crossmatch HEART Score - HEART Score EKG: Non-specific Age: 45-65 Risk factors: > 3 risk factors or hx of atherosclerotic disease Troponin: Troponin T < 0.010 ng/mL (0.00-0.029) 04/04/21 13:31 Troponin: < normal limit
[2021-04-04] MEDS: WARFARIN 7.5 MG TAB PO SCH (17:20)
[2021-04-04 20:52] LABS: Hematocrit 26.5 % (30.3-42.9); Hemoglobin 7.5 gm/dl (10.1-14.3)
[2021-04-04] MEDS: ZOLPIDEM 5 MG TAB PO SCH (21:50)
[2021-04-05] MEDS ORDERED: AZITHROMYCIN/NS 500 MG/250 ML 500 MG/250 ML BAG IV SCH
[2021-04-05] MEDS ORDERED: cefTRIAXone/NS 2 GM/100 ML 2 GM/100 ML BAG IV SCH
[2021-04-05] MEDS: IPRATROPIUM/ALBUTEROL SULFATE 3 ML AMPUL.NEB IH SCH ×4 (01:16→19:04)
[2021-04-05 05:06] LABS: BUN/Creatinine Ratio 18; Blood Urea Nitrogen 20 mg/dL (7-17); Hemolysis Index 0
[2021-04-05 05:18] LABS: Mean Corpuscular HGB Conc 29 % (30-34); Red Blood Count 4.11 M/mm3 (3.65-5.03)
[2021-04-05 05:19] LABS: Hematocrit 26.4 % (30.3-42.9); Hemoglobin 7.6 gm/dl (10.1-14.3); Mean Corpuscular Volume 64 fl (79-97); Platelet Count 128 K/mm3 (140-440); Red Cell Distribution Width 32.2 % (13.2-15.2)
[2021-04-05 05:21] LABS: INR 1.15 (0.87-1.13)
[2021-04-05 06:14] LABS: Anisocytosis 2+; Total Cells Counted 100
[2021-04-05 06:15] LABS: Hypochromasia 2+; Platelet Estimate Consistent w Auto
[2021-04-05] MEDS: dexAMETHasone 4 MG/ML VIAL IV SCH (09:53)
[2021-04-05] MEDS: POTASSIUM CHLORIDE ER 10 MEQ TAB PO SCH (09:53)
[2021-04-05] MEDS: PANTOPRAZOLE 40 MG TAB PO PRN (09:53)
[2021-04-05] MEDS: ALPRAZolam 0.5 MG TAB PO SCH ×2 (10:30→21:19)
[2021-04-05] MEDS ORDERED: guaiFENesin 100 MG/5 ML ORAL LIQD PO PRN (10:33)
[2021-04-05] MEDS: BUMETANIDE 1 MG TAB PO SCH (10:40)
--- NOTE | 2021-04-05 11:21 | Progress Note ---
Assessment and Plan Cultures: SARS CoV2 PCR: negative A/P: 55-year-old female with CHF and COPD: #COVID-19 PUI: Patient is status post first Covid vaccine. Negative PCR. #Acute on chronic hypoxic respiratory failure: #COPD with acute exacerbation #Anemia: Getting blood transfusion Recs: COVID negative steroids per primary for COPD exacerbation ID will sign off. Please call with questions. Jerad Jackson MD, FACP [facility] ([facility]) O: [phone] F: [phone] Subjective Date of service: 04/05/21 Interval history: No fever. Breathing slowly improving. COVID is negative. Objective - Exam Narrative Exam: Physical Exam: Constitutional: Alert, cooperative. No acute distress Head, Ears, Nose: Normocephalic, atraumatic. External ears, nose normal Eyes: Conjunctivae/corneas clear. No icterus. No ptosis. Neck: Supple, no meningeal signs Cardiovascular: S1, S2 normal. Respiratory: b/l rhonchi GI: Soft, non-tender; bowel sounds normal. No peritoneal signs Musculoskeletal: No pedal edema, no cyanosis. Skin: No rash or abscess Hem/Lymphatic: No palpable cervical or supraclavicular nodes. No lymphangitis Psych: Mood ok. Affect normal Neurological: Awake, alert, oriented. No gross abnormality - Constitutional Vitals: Vital Signs Temp Pulse Resp BP Pulse Ox 99.2 F 101 H 16 118/64 94 04/05/21 06:36 04/05/21 06:36 04/05/21 06:36 04/05/21 06:36 04/05/21 08:11 Temperature -Last 24 Hours Temperature 99.2 F Temperature 98.6 F Temperature 98.7 F Temperature 98.6 F - Labs CBC & Chem 7: 04/05/21 03:51 04/05/21 03:51 Labs: Abnormal lab results 04/04/21 04/04/21 04/05/21 Range/Units 13:31 20:18 03:51 Hgb 7.5 L 7.6 L (10.1-14.3) gm/dl Hct 26.5 L 26.4 L (30.3-42.9) % MCV 64 L (79-97) fl MCH 18 L (28-32) pg MCHC 29 L (30-34) % RDW 32.2 H (13.2-15.2) % Plt Count 128 L (140-440) K/mm3 Seg Neuts % (Manual) 86.0 H (40.0-70.0) % Lymphocytes % (Manual) 11.0 L (13.4-35.0) % Nucleated RBC % 2.0 H (0.0-0.9) % Lymphocytes # (Manual) 0.9 L (1.2-5.4) K/mm3 PT 15.2 H (12.2-14.9) Sec. INR 1.20 H (0.87-1.13) BUN (7-17) mg/dL Glucose (65-100) mg/dL 04/05/21 04/05/21 Range/Units 03:51 03:51 Hgb (10.1-14.3) gm/dl Hct (30.3-42.9) % MCV (79-97) fl MCH (28-32) pg MCHC (30-34) % RDW (13.2-15.2) % Plt Count (140-440) K/mm3 Seg Neuts % (Manual) (40.0-70.0) % Lymphocytes % (Manual) (13.4-35.0) % Nucleated RBC % (0.0-0.9) % Lymphocytes # (Manual) (1.2-5.4) K/mm3 PT (12.2-14.9) Sec. INR 1.15 H (0.87-1.13) BUN 20 H (7-17) mg/dL Glucose 158 H (65-100) mg/dL
--- NOTE | 2021-04-05 11:22 | Progress Note ---
Assessment and Plan - Patient Problems (1) Acute respiratory failure with hypoxia Current Visit: Yes Status: Acute Plan to address problem: Patient on 6 L nasal cannula oxygen Continue IV steroids and IV antibiotics and duo nebs [id number] and as needed (2) COPD exacerbation Current Visit: Yes Status: Acute Plan to address problem: IV steroids IV Levaquin and duo nebs [id number] and as needed BiPAP if necessary Intubation if necessary (3) CHF (congestive heart failure) Current Visit: Yes Status: Chronic Qualifiers: Heart failure type: combined systolic and diastolic Plan to address problem: Continue Bumex and potassium (4) GERD (gastroesophageal reflux disease) Current Visit: Yes Status: Chronic Qualifiers: Esophagitis presence: without esophagitis Qualified Code(s): K21.9 - Gastro -esophageal reflux disease without esophagitis Plan to address problem: Continue PPIs (5) Hypertension Current Visit: Yes Status: Chronic Qualifiers: Hypertension type: essential hypertension Qualified Code(s): I10 - Essential (primary) hypertension Plan to address problem: Continue antihypertensives (6) DVT prophylaxis Current Visit: No Status: Acute Plan to address problem: On heparin and GI prophylaxis Subjective Date of service: 04/05/21 Principal diagnosis: Acute respiratory failure and COPD exacerbation Interval history: 55-year-old female with past medical history of CHF and COPD was brought to the emergency room with complaints of chest pain, difficulty breathing, chills, cough, congestion for the last couple of days. patient chest pain is a 5 out of 10. Patient states she has had part one of her COVID-19 vaccine. Patient complains of fever. Patient denies nausea vomiting. Patient states that her shortness of breath is better with rest and worse with exertion. Patient states she is on 4 L of oxygen at home. In the emergency room patient is found to have acute COPD exacerbation also patient is admitted for PUI. Also patient hemoglobin is 7.0 and hematocrit 25.3 04/04/2020 Patient still severely short of breath Covid negative 04/05/2021 Still short of breath with some improvement Objective - Constitutional Vitals: Vital Signs - 12hr 04/05/21 04/05/21 04/05/21 01:24 02:25 06:36 Temperature 99.2 F Pulse Rate 101 H Pulse Rate [ 85 Anterior Bilateral Throughout] Respiratory 16 Rate Respiratory 24 Rate [Anterior Bilateral Throughout] Blood Pressure 118/64 O2 Sat by Pulse 72 L 88 86 Oximetry 04/05/21 08:11 Temperature Pulse Rate Pulse Rate [ Anterior Bilateral Throughout] Respiratory Rate Respiratory Rate [Anterior Bilateral Throughout] Blood Pressure O2 Sat by Pulse 94 Oximetry General appearance: Present: no acute distress, well-nourished - EENT Eyes: PERRL, EOM intact ENT: hearing intact, clear oral mucosa Ears: bilateral: normal - Neck Neck: supple, normal ROM - Respiratory Respiratory effort: normal Respiratory: bilateral: CTA, rhonchi, wheezing - Breasts Breasts: normal - Cardiovascular Heart rate: 78 Rhythm: regular Heart Sounds: Present: S1 & S2. Absent: gallop, rub Extremities: pulses intact, No edema, normal color, Full ROM - Gastrointestinal General gastrointestinal: Present: soft, non-tender, non-distended, normal bowel sounds - Genitourinary Female genitourinary: normal - Integumentary Integumentary: clear, warm, dry - Musculoskeletal Musculoskeletal: 1, strength equal bilaterally - Neurologic Neurologic: moves all extremities - Psychiatric Psychiatric: memory intact, appropriate mood/affect, intact judgment & insight - Labs CBC & Chem 7: 04/05/21 03:51 04/05/21 03:51 Labs: Abnormal lab results 04/04/21 04/04/21 04/05/21 Range/Units 13:31 20:18 03:51 Hgb 7.5 L 7.6 L (10.1-14.3) gm/dl Hct 26.5 L 26.4 L (30.3-42.9) % MCV 64 L (79-97) fl MCH 18 L (28-32) pg MCHC 29 L (30-34) % RDW 32.2 H (13.2-15.2) % Plt Count 128 L (140-440) K/mm3 Seg Neuts % (Manual) 86.0 H (40.0-70.0) % Lymphocytes % (Manual) 11.0 L (13.4-35.0) % Nucleated RBC % 2.0 H (0.0-0.9) % Lymphocytes # (Manual) 0.9 L (1.2-5.4) K/mm3 PT 15.2 H (12.2-14.9) Sec. INR 1.20 H (0.87-1.13) BUN (7-17) mg/dL Glucose (65-100) mg/dL 04/05/21 04/05/21 Range/Units 03:51 03:51 Hgb (10.1-14.3) gm/dl Hct (30.3-42.9) % MCV (79-97) fl MCH (28-32) pg MCHC (30-34) % RDW (13.2-15.2) % Plt Count (140-440) K/mm3 Seg Neuts % (Manual) (40.0-70.0) % Lymphocytes % (Manual) (13.4-35.0) % Nucleated RBC % (0.0-0.9) % Lymphocytes # (Manual) (1.2-5.4) K/mm3 PT (12.2-14.9) Sec. INR 1.15 H (0.87-1.13) BUN 20 H (7-17) mg/dL Glucose 158 H (65-100) mg/dL HEART Score - HEART Score EKG: Non-specific Age: 45-65 Risk factors: > 3 risk factors or hx of atherosclerotic disease Troponin: Troponin T < 0.010 ng/mL (0.00-0.029) 04/04/21 13:31 Troponin: < normal limit
[2021-04-05] MEDS: methylPREDNISolone Sod Succinate 40 MG/1 ML INJ IV SCH ×2 (14:35→21:27)
[2021-04-05] MEDS: WARFARIN 7.5 MG TAB PO SCH (18:29)
[2021-04-05] MEDS: ZOLPIDEM 5 MG TAB PO SCH (21:18)
[2021-04-06] MEDS: IPRATROPIUM/ALBUTEROL SULFATE 3 ML AMPUL.NEB IH SCH ×2 (02:00→09:09)
[2021-04-06 05:05] LABS: INR 1.46 (0.87-1.13)
[2021-04-06] MEDS: methylPREDNISolone Sod Succinate 40 MG/1 ML INJ IV SCH (05:42)
[2021-04-06 06:54] VITALS: BP 118/59
[2021-04-06] MEDS: BUMETANIDE 1 MG TAB PO SCH (11:46)
[2021-04-06] MEDS: POTASSIUM CHLORIDE ER 10 MEQ TAB PO SCH (11:46)
[2021-04-06] MEDS: ALPRAZolam 0.5 MG TAB PO SCH (11:46)
--- NOTE | 2021-04-06 13:13 | Discharge Summary ---
Providers - Providers Date of Admission: 04/06/21 09:02 Date of discharge: 04/06/21 Attending physician: BARRINGTON GOMEZ 04/04/21 03:29 Consult to Physician [CONS] Routine Comment: Consulting Provider: MARI EUGENE Physician Instructions: Reason For Exam: pui [facility] Hospital[facility] Condition: Critical Hospital course: Subjective Date of service: 04/06/21 Principal diagnosis: Acute respiratory failure and COPD exacerbation Interval history: 55-year-old female with past medical history of CHF and COPD was brought to the emergency room with complaints of chest pain, difficulty breathing, chills, cough, congestion for the last couple of days. patient chest pain is a 5 out of 10. Patient states she has had part one of her COVID-19 vaccine. Patient complains of fever. Patient denies nausea vomiting. Patient states that her shortness of breath is better with rest and worse with exertion. Patient states she is on 4 L of oxygen at home. In the emergency room patient is found to have acute COPD exacerbation also patient is admitted for PUI. Also patient hemoglobin is 7.0 and hematocrit 25.3 04/04/2020 Patient still severely short of breath Covid negative 04/05/2021 Still short of breath with some improvement 04/06/2021 Much improved Assessment and Plan - Patient Problems (1) Acute respiratory failure with hypoxia Current Visit: Yes Status: Acute Plan to address problem: Patient on 6 L nasal cannula oxygen Continue IV steroids and IV antibiotics and duo nebs [id number] and as needed (2) COPD exacerbation Current Visit: Yes Status: Acute Plan to address problem: IV steroids IV Levaquin and duo nebs [id number] and as needed BiPAP if necessary Intubation if necessary (3) CHF (congestive heart failure) Current Visit: Yes Status: Chronic Qualifiers: Heart failure type: combined systolic and diastolic Plan to address problem: Continue Bumex and potassium (4) GERD (gastroesophageal reflux disease) Current Visit: Yes Status: Chronic Qualifiers: Esophagitis presence: without esophagitis Qualified Code(s): K21.9 - Gastro-esophageal reflux disease without esophagitis Plan to address problem: Continue PPIs (5) Hypertension Current Visit: Yes Status: Chronic Qualifiers: Hypertension type: essential hypertension Qualified Code(s): I10 - Essential (primary) hypertension Plan to address problem: Continue antihypertensives (6) DVT prophylaxis Current Visit: No Status: Acute Plan to address problem: On heparin and GI prophylaxis Disposition: DC-01 TO HOME OR SELFCARE Final Discharge Diagnosis (Prints w/discharge instructions): Acute respiratory failure with hypoxia. COPD exacerbation. GERD. PUI. CHF Time spent for discharge: 35 minutes Core Measure Documentation - Palliative Care Palliative Care/ Comfort Measures: Not Applicable - Core Measures Any of the following diagnoses?: none Exam - Constitutional Vitals: Temp Pulse Resp BP Pulse Ox 98.1 F 88 20 118/59 94 04/06/21 04:52 04/06/21 09:09 04/06/21 09:09 04/06/21 04:52 04/06/21 09:23 General appearance: Present: no acute distress, well-nourished - EENT Eyes: Present: PERRL ENT: hearing intact, clear oral mucosa - Neck Neck: Present: supple, normal ROM - Respiratory Respiratory effort: normal Respiratory: bilateral: CTA, rhonchi, wheezing - Cardiovascular Heart rate: 78 Heart Sounds: Present: S1 & S2. Absent: rub, click - Extremities Extremities: no ischemia, pulses intact, pulses symmetrical, No edema Peripheral Pulses: within normal limits - Abdominal General gastrointestinal: Present: soft, non-tender, non-distended, normal bowel sounds Female genitourinary: Present: normal - Integumentary Integumentary: Present: clear, warm, dry - Musculoskeletal Musculoskeletal: gait normal, strength equal bilaterally - Psychiatric Psychiatric: appropriate mood/affect, intact judgment & insight - Neurologic Neurologic: CNII-XII intact, moves all extremities Plan Activity: no restrictions Diet: low salt Follow up with: BARRINGTON GOMEZ MD [Staff Physician] - [facility] Prescriptions: Bumetanide [Bumex 1 mg tab] 1 mg PO DAILY #30 tablet Warfarin [Coumadin] 7.5 mg PO DAILY@1700 #30 tablet Potassium Chloride [K-Dur] 10 meq PO QDAY #30 tablet levoFLOXacin [Levaquin] 750 mg PO QDAY #7 tablet Prednisone [predniSONE 10 mg (6-Day Pack, 21 Tabs)] 10 mg PO .TAPER #1 tab.ds.pk ALBUTEROL NEB's [Proventil 0.083% NEBS] 2.5 mg IH Q4HRT PRN #50 nebu PRN Reason: Shortness Of Breath ALPRAZolam [Xanax TAB] 1 mg PO BID #30
--- NOTE | 2021-04-06 21:31 | Electrocardiograph Report ---
[facility] Test Date: 2021-04-04 Test Time: 00:07:19 Pat Name: GÓMEZ PAN Department: Room: A390 Gender: F Certified Nursing Attendant: AAKASH : 1965 Requested By: KHUSHBU GRACE III Order Number: [id number] Reading MD: Quynh Norwood Measurements Intervals [place] Rate: 91 P: 18 LA: 192 QRS: 94 QRSD: 88 T: 16 QT: 354 QTc: 434 Interpretive Statements Sinus rhythm Probable left atrial enlargement ST depression, consider inferolateral ischemia No previous ECG available for comparison Electronically Signed On 04-06-2021 21:31:02 EDT by Quynh Norwood
--- NOTE | 2021-04-06 21:42 | Electrocardiograph Report ---
[facility] Test Date: 2021-04-05 Test Time: 09:02:13 Pat Name: GÓMEZ PAN Department: Room: A390 1 Gender: F Director [employer]: MOHINI : 1965 Requested By: KHUSHBU GRACE III Order Number: [id number] Reading MD: Quynh Norwood Measurements Intervals [place] Rate: 98 P: 59 WV: 169 QRS: 116 QRSD: 101 T: -14 QT: 335 QTc: 428 Interpretive Statements Sinus rhythm LAE, consider biatrial enlargement T wave abnormality, consider inferolateral ischemia Compared to ECG 04/04/2021 00:07:19 No significant change Electronically Signed On 04-06-2021 21:42:14 EDT by Quynh Norwood
== END 2021-04-06 15:34 | disposition home or self-care (01) | DRG 190 ==
LOC: ED 21:31 → 3A 04-04 03:28 → OBSVTOIN 04-06 09:02
PROVIDERS: ADMIT Hospitalist; ATTEND Internal Medicine
PROC: 30233N1 Transfusion of Nonautologous Red Blood Cells into Peripheral Vein, Percutaneous Approach (ICD-10-PCS; principal; 2021-04-04)
DX: J44.1 Chronic obstructive pulmonary disease with (acute) exacerbation (principal); J96.21 Acute and chronic respiratory failure with hypoxia; I50.42 Chronic combined systolic (congestive) and diastolic (congestive) heart failure; I11.0 Hypertensive heart disease with heart failure; I48.91 Unspecified atrial fibrillation; D64.9 Anemia, unspecified; K21.9 Gastro-esophageal reflux disease without esophagitis; Z99.81 Dependence on supplemental oxygen; Z20.822 Contact with and (suspected) exposure to COVID-19; Z79.01 Long term (current) use of anticoagulants; Z79.899 Other long term (current) drug therapy
CPT/HCPCS: 36415; 71045; 80048; 80053; 82728; 82947; 83615; 83880; 84145; 84484; 85007; 85018; 85025; 85379; 85610; 86140; 86850; 86900; 86901; 86920; 93005; 94640; 94644; 96374; 96375; G0378; J0456; J0696; J1100; J2920; J2930; P9016; U0003

== ENCOUNTER 2021-11-13 23:25 | Emergency (ER) | payer MEDICARE ==
[2021-11-14] MEDS ORDERED: SODIUM CHLORIDE 0.9% 1000 ML 1,000 ML IV ONE (00:25)
[2021-11-14] MEDS ORDERED: ONDANSETRON 4 MG/2 ML INJ IV ONE (00:25)
[2021-11-14] MEDS ORDERED: MORPHINE 4 MG/1 ML INJ IV ONE (00:25)
[2021-11-14] MEDS ORDERED: ACETAMINOPHEN 500 MG TAB PO ONE (00:36)
[2021-11-14] MEDS ORDERED: cefTRIAXone/NS 1 GM/50 ML 1 GM/50 ML BAG IV ONE (00:55)
--- NOTE | 2021-11-14 01:02 | XRay Report ---
CHEST 1 VIEW INDICATION: fever. COMPARISON: 07/04/2021 FINDINGS: SUPPORT DEVICES: None. HEART: Cardiomegaly again noted. LUNGS/PLEURA: Moderate patchy right basilar airspace disease. ADDITIONAL FINDINGS: None. IMPRESSION: 1. Cardiomegaly with moderate patchy right basilar airspace disease worrisome for pneumonia. Signer Name: Tony Garduno MD Signed: 11/14/2021 12:57 AM Workstation Name: [email or web address]
[2021-11-14 01:15] LABS: Mean Corpuscular HGB Conc 29 % (30-34); Red Blood Count 4.55 M/mm3 (3.65-5.03)
[2021-11-14 01:21] LABS: Hematocrit 28.7 % (30.3-42.9); Hemoglobin 8.4 gm/dl (10.1-14.3); Mean Corpuscular Volume 63 fl (79-97); Platelet Count 92 K/mm3 (140-440); Red Cell Distribution Width 26.9 % (13.2-15.2)
[2021-11-14 01:35] LABS: BUN/Creatinine Ratio 15; Blood Urea Nitrogen 12 mg/dL (7-17); Calcium 8.3 mg/dL (8.4-10.2); Hemolysis Index 0
[2021-11-14 02:55] LABS: Basophils % (Manual) 0 % (0.0-1.8); Eosinophils % (Manual) 0 % (0.0-4.3); Hypochromasia 2+; Monocytes % (Manual) 0 % (0.0-7.3); Total Cells Counted 100
[2021-11-14 02:56] LABS: Anisocytosis 3+
[2021-11-14 02:57] LABS: Ovalocytes Rare; Platelet Estimate Consistent w Auto; Schistocytes Few; Tear Drop Cells Few
[2021-11-14 03:13] LABS: Bilirubin,Urine NEG (Negative); Blood,Urine SM (Negative); Color,Urine Yellow (Yellow); Mucus,Urine FEW /HPF; Protein,Urine >500 mg/dL (Negative); Urobilinogen,Urine < 2.0 mg/dL (<2.0)
--- NOTE | 2021-11-14 03:21 | Emergency Department Report ---
ED Abdominal Pain HPI - General Chief Complaint: Back Pain/Injury Stated Complaint: RT FLANK PAIN Time Seen by Provider: 11/14/21 00:25 Source: patient, EMS Mode of arrival: Stretcher Limitations: No Limitations - History of Present Illness Initial Comments: eceived pt via EMS came in due to right flank pain. Pt is AAOx4. Hooked pt on the monitor, vital signs stable, HR was 128, respiration even and non labored not in respiratory distress. Put pt on hospital gown and provided blanket. Kept side rails up and placed bed in the lowest position. Will continue to monitor the pt. Complaint: flank pain -: Gradual, days(s) Location: R flank Radiation: RUQ Severity scale (0 -10): 6 Quality: aching Improves With: nothing Worsens With: nothing - Related Data Home Medications Medication Instructions Recorded Confirmed Last Taken Macitentan (Nf) [Opsumit (Nf)] 10 mg PO QDAY 02/13/14 06/30/21 12/08/19 10:00 Omeprazole [PriLOSEC] 40 mg PO QDAY PRN 06/19/15 06/30/21 12/08/19 08:00 Norethindrone Acetate [Aygestin] 5 mg PO DAILY 12/10/19 06/30/21 12/10/19 Tadalafil 20 mg PO DAILY 06/26/21 06/30/21 Unknown Previous Rx's Medication Instructions Recorded Last Taken Type ALBUTEROL NEB's [Proventil 0.083% 2.5 mg IH Q4HRT PRN #50 nebu 04/06/21 Unknown Rx NEBS] ALPRAZolam [Xanax TAB] 1 mg PO BID #30 04/06/21 Unknown Rx Bumetanide [Bumex 1 mg tab] 1 mg PO DAILY #30 tablet 04/06/21 Unknown Rx Norethindrone Acetate [Aygestin] 5 mg PO DAILY 04/06/21 Unknown Rx Potassium Chloride [K-Dur] 10 meq PO QDAY #30 tablet 04/06/21 Unknown Rx guaiFENesin/CODEINE [Robitussin AC] 10 ml PO QID 6 Days #150 oral.liqd 04/06/21 Unknown Rx Dolutegravir [Tivicay] 50 mg PO DAILY #30 tablet 07/09/21 Unknown Rx Emtricitabine [Emtriva] 200 mg PO QDAY #30 capsule 07/09/21 Unknown Rx Tadalafil (Nf) [Adcirca (Nf)] 40 mg PO DAILY #30 tablet 07/09/21 Unknown Rx Tenofovir [Viread] 300 mg PO QDAY #30 tablet 07/09/21 Unknown Rx dilTIAZem CD [Cardizem CD] 120 mg PO QDAY #30 capsule 07/09/21 Unknown Rx predniSONE [Deltasone] 20 mg PO .TAPER #20 tab 07/09/21 Unknown Rx Albuterol Mdi (or & Nicu Only) 2 puff IH QID PRN #8.5 gram 11/14/21 Unknown Rx [ProAir HFA Inhaler] levoFLOXacin [Levaquin TAB] 500 mg PO QDAY #10 tablet 11/14/21 Unknown Rx Allergies Allergy/AdvReac Type Severity Reaction Status Date / Time No Known Allergies Allergy Verified 11/14/21 00:38 ED Review of Systems ROS: Stated complaint: RT FLANK PAIN Other details as noted in HPI Constitutional: denies: chills, fever Eyes: denies: eye pain, eye discharge, vision change ENT: denies: ear pain, throat pain Respiratory: denies: cough, shortness of breath, wheezing Cardiovascular: denies: chest pain, palpitations Endocrine: no symptoms reported Gastrointestinal: denies: abdominal pain, nausea, diarrhea Genitourinary: denies: urgency, dysuria, discharge Musculoskeletal: denies: back pain, joint swelling, arthralgia Skin: denies: rash, lesions Neurological: denies: headache, weakness, paresthesias Psychiatric: denies: anxiety, depression Hematological/Lymphatic: denies: easy bleeding, easy bruising ED Past Medical Hx - Past Medical History Previous Medical History?: Yes Hx Hypertension: Yes Hx Heart Attack/AMI: No Hx Congestive Heart Failure: Yes Hx Diabetes: No Hx Deep Vein Thrombosis: No Hx Pulmonary Embolism: No Hx Sickle Cell Disease: No Hx Asthma: No Hx COPD: Yes Hx Tuberculosis: No Hx HIV: No Additional medical history: hx of a.fib, chronic anemia with transfusion - Surgical History Past Surgical History?: Yes Hx Coronary Stent: No Hx Open Heart Surgery: No Hx Pacemaker: No Hx Internal Defibrillator: No Hx Cholecystectomy: No Hx Appendectomy: No Hx Breast Surgery: No Additional Surgical History: Exploratory surgery 1999 - Social History Smoking Status: Never Smoker - Medications Home Medications: Home Medications Medication Instructions Recorded Confirmed Last Taken Type Macitentan (Nf) [Opsumit (Nf)] 10 mg PO QDAY 02/13/14 06/30/21 12/08/19 10:00 History Omeprazole [PriLOSEC] 40 mg PO QDAY PRN 06/19/15 06/30/21 12/08/19 08:00 History Norethindrone Acetate [Aygestin] 5 mg PO DAILY 12/10/19 06/30/21 12/10/19 History ALBUTEROL NEB's [Proventil 0.083% 2.5 mg IH Q4HRT PRN #50 nebu 04/06/21 06/30/21 Unknown Rx NEBS] ALPRAZolam [Xanax TAB] 1 mg PO BID #30 04/06/21 06/30/21 Unknown Rx Bumetanide [Bumex 1 mg tab] 1 mg PO DAILY #30 tablet 04/06/21 06/30/21 Unknown Rx Norethindrone Acetate [Aygestin] 5 mg PO DAILY 04/06/21 06/30/21 Unknown Rx Potassium Chloride [K-Dur] 10 meq PO QDAY #30 tablet 04/06/21 06/30/21 Unknown Rx guaiFENesin/CODEINE [Robitussin AC] 10 ml PO QID 6 Days #150 oral.liqd 04/06/21 06/30/21 Unknown Rx Tadalafil 20 mg PO DAILY 06/26/21 06/30/21 Unknown History Dolutegravir [Tivicay] 50 mg PO DAILY #30 tablet 07/09/21 Unknown Rx Emtricitabine [Emtriva] 200 mg PO QDAY #30 capsule 07/09/21 Unknown Rx Tadalafil (Nf) [Adcirca (Nf)] 40 mg PO DAILY #30 tablet 07/09/21 Unknown Rx Tenofovir [Viread] 300 mg PO QDAY #30 tablet 07/09/21 Unknown Rx dilTIAZem CD [Cardizem CD] 120 mg PO QDAY #30 capsule 07/09/21 Unknown Rx predniSONE [Deltasone] 20 mg PO .TAPER #20 tab 07/09/21 Unknown Rx Albuterol Mdi (or & Nicu Only) 2 puff IH QID PRN #8.5 gram 11/14/21 Unknown Rx [ProAir HFA Inhaler] levoFLOXacin [Levaquin TAB] 500 mg PO QDAY #10 tablet 11/14/21 Unknown Rx ED Physical Exam - General Limitations: No Limitations General appearance: alert, in no apparent distress - Head Head exam: Present: atraumatic, normocephalic - Eye Eye exam: Present: normal appearance - ENT ENT exam: Present: mucous membranes moist - Neck Neck exam: Present: normal inspection - Respiratory Respiratory exam: Present: normal lung sounds bilaterally. Absent: respiratory distress - Cardiovascular Cardiovascular Exam: Present: regular rate, tachycardia. Absent: systolic murmur, diastolic murmur, rubs, gallop - GI/Abdominal GI/Abdominal exam: Present: soft, normal bowel sounds - Extremities Exam Extremities exam: Present: normal inspection - Back Exam Back exam: Present: normal inspection - Neurological Exam Neurological exam: Present: alert, oriented X3 - Psychiatric Psychiatric exam: Present: normal affect, normal mood - Skin Skin exam: Present: warm, dry, intact, normal color. Absent: rash ED Course Vital Signs 11/14/21 11/14/21 11/14/21 00:25 00:45 00:49 Temperature 103.2 F H Pulse Rate 128 H 125 H Respiratory 19 37 H 18 Rate Blood Pressure 146/79 Blood Pressure 133/78 [Left] O2 Sat by Pulse 95 93 Oximetry 11/14/21 11/14/21 11/14/21 01:00 01:16 01:19 Temperature Pulse Rate 119 H 116 H Respiratory 29 H 25 H 18 Rate Blood Pressure 131/71 121/70 Blood Pressure [Left] O2 Sat by Pulse 96 96 Oximetry 11/14/21 11/14/21 11/14/21 01:30 01:46 01:49 Temperature Pulse Rate 118 H 117 H Respiratory 26 H 24 18 Rate Blood Pressure 121/70 121/70 Blood Pressure [Left] O2 Sat by Pulse 95 94 Oximetry 11/14/21 11/14/21 11/14/21 02:00 02:02 02:16 Temperature 100.8 F H Pulse Rate 115 H 111 H Respiratory 24 22 Rate Blood Pressure 112/68 114/67 Blood Pressure [Left] O2 Sat by Pulse 97 94 Oximetry 11/14/21 02:30 Temperature Pulse Rate 109 H Respiratory 21 Rate Blood Pressure 110/71 Blood Pressure [Left] O2 Sat by Pulse 95 Oximetry - Reevaluation(s) Reevaluation #1: 11/14/21 03:19 vss , o2 sat 96 on RA , no distress , x ray showed pneumonia normal kidney fiction alert and awake abx given lactic normal ED Medical Decision Making - Lab Data Result diagrams: 11/14/21 00:55 11/14/21 00:55 Critical care attestation.: If time is entered above; I have spent that time in minutes in the direct care of this critically ill patient, excluding procedure time. ED Disposition Clinical Impression: Right flank pain, Pneumonia, Fever Disposition: HOME / SELF CARE / HOMELESS Is pt being admited?: No Does the pt Need Aspirin: No Condition: Stable Instructions: Bacterial Pneumonia (ED), Flank Pain, Adult, [id number], Fever, Adult, Community-Acquired Pneumonia, Adult, [id number] Prescriptions: levoFLOXacin [Levaquin TAB] 500 mg PO QDAY #10 tablet Albuterol Mdi (or & Nicu Only) [ProAir HFA Inhaler] 2 puff IH QID PRN #8.5 gram PRN Reason: Shortness Of Breath Referrals: HUSSEIN MENDEZ MD [Primary Care Provider] - 3-5 Days
[2021-11-14 04:01] VITALS: BP 102/63
== END 2021-11-14 03:50 | disposition home or self-care (01) ==
LOC: ED 23:25
DX: R10.11 Right upper quadrant pain (principal); J18.9 Pneumonia, unspecified organism; I10 Essential (primary) hypertension; I50.9 Heart failure, unspecified; Z79.899 Other long term (current) drug therapy
CPT/HCPCS: 36415; 71045; 80048; 81001; 82140; 82150; 83690; 85007; 85025; 87040; 96361; 96365; 96375; 99284; J0696; J2270; J2405; J7030; Q0162

== ENCOUNTER 2022-04-19 22:24 | Emergency (ER) | payer MEDICARE ==
[2022-04-20 10:35] LABS: Hematocrit 33.1 % (30.3-42.9); Hemoglobin 10.4 gm/dl (10.1-14.3); Mean Corpuscular HGB Conc 31 % (30-34); Red Blood Count 4.74 M/mm3 (3.65-5.03)
[2022-04-20 10:46] LABS: Mean Corpuscular Volume 70 fl (79-97); Red Cell Distribution Width 23.5 % (13.2-15.2)
[2022-04-20 11:09] LABS: Alanine Aminotransferase 18 units/L (7-56); Albumin 4.7 g/dL (3.9-5); BUN/Creatinine Ratio 29; Blood Urea Nitrogen 23 mg/dL (7-17); Calcium 9.8 mg/dL (8.4-10.2); Hemolysis Index 2
[2022-04-20] MEDS ORDERED: ONDANSETRON 4 MG/2 ML INJ IV ONE (12:48)
[2022-04-20] MEDS ORDERED: fentaNYL 100 MCG/2 ML INJ IV ONE (12:48)
[2022-04-20] MEDS ORDERED: SODIUM CHLORIDE 0.9% 500 ML 500 ML IV ONE (12:49)
--- NOTE | 2022-04-20 12:58 | Emergency Department Report ---
HPI - General Chief Complaint: Nausea/Vomiting/Diarrhea Time Seen by Provider: 04/20/22 12:37 - HPI HPI: Room 18 The patient is a 57-year-old female present with a chief complaint of abdominal pain. Patient states for the past 2 days she has had diffuse intermittent abdominal pain described as sharp in nature. Patient admits to nausea and vomiting but denies diarrhea. Patient states her last meal prior to her symptoms included barbecue chicken corn and cabbage. Patient states no one else ate the same meal. Patient denies history of fever. Patient currently gives her abdominal pain a score of 9/10. ED Past Medical Hx - Past Medical History Hx Hypertension: Yes Hx Congestive Heart Failure: Yes Hx COPD: Yes Additional medical history: hx of a.fib, chronic anemia with transfusion - Surgical History Additional Surgical History: Exploratory surgery 1999 - Family History Family history: no significant - Social History Smoking Status: Never Smoker Substance Use Type: None (Denies illicit drug use) - Medications Home Medications: Home Medications Medication Instructions Recorded Confirmed Last Taken Type Macitentan (Nf) [Opsumit (Nf)] 10 mg PO QDAY 02/13/14 06/30/21 12/08/19 10:00 History Omeprazole [PriLOSEC] 40 mg PO QDAY PRN 06/19/15 06/30/21 12/08/19 08:00 History Norethindrone Acetate [Aygestin] 5 mg PO DAILY 12/10/19 06/30/21 12/10/19 History ALBUTEROL NEB's [Proventil 0.083% 2.5 mg IH Q4HRT PRN #50 nebu 04/06/21 06/30/21 Unknown Rx NEBS] ALPRAZolam [Xanax TAB] 1 mg PO BID #30 04/06/21 06/30/21 Unknown Rx Bumetanide [Bumex 1 mg tab] 1 mg PO DAILY #30 tablet 04/06/21 06/30/21 Unknown Rx Norethindrone Acetate [Aygestin] 5 mg PO DAILY 04/06/21 06/30/21 Unknown Rx Potassium Chloride [K-Dur] 10 meq PO QDAY #30 tablet 04/06/21 06/30/21 Unknown Rx guaiFENesin/CODEINE [Robitussin AC] 10 ml PO QID 6 Days #150 oral.liqd 04/06/21 06/30/21 Unknown Rx Tadalafil 20 mg PO DAILY 06/26/21 06/30/21 Unknown History Dolutegravir [Tivicay] 50 mg PO DAILY #30 tablet 07/09/21 Unknown Rx Emtricitabine [Emtriva] 200 mg PO QDAY #30 capsule 07/09/21 Unknown Rx Tadalafil (Nf) [Adcirca (Nf)] 40 mg PO DAILY #30 tablet 07/09/21 Unknown Rx Tenofovir [Viread] 300 mg PO QDAY #30 tablet 07/09/21 Unknown Rx dilTIAZem CD [Cardizem CD] 120 mg PO QDAY #30 capsule 07/09/21 Unknown Rx predniSONE [Deltasone] 20 mg PO .TAPER #20 tab 07/09/21 Unknown Rx Albuterol Mdi (or & Nicu Only) 2 puff IH QID PRN #8.5 gram 11/14/21 Unknown Rx [ProAir HFA Inhaler] levoFLOXacin [Levaquin TAB] 500 mg PO QDAY #10 tablet 11/14/21 Unknown Rx HYDROcodone/APAP 5-325 [[place] 1 - 2 each PO Q6HR PRN #14 tablet 04/20/22 Unknown Rx 5/325] Metoclopramide [Reglan] 10 mg PO QID PRN #30 tab 04/20/22 Unknown Rx ED Review of Systems ROS: Stated complaint: NAUSEA, VOMITING Other details as noted in HPI Constitutional: no symptoms reported Eyes: denies: eye pain ENT: denies: throat pain Respiratory: no symptoms reported Cardiovascular: denies: chest pain Endocrine: no symptoms reported Gastrointestinal: abdominal pain, nausea, vomiting Genitourinary: denies: dysuria Musculoskeletal: denies: back pain Neurological: denies: headache Physical Exam - Physical Exam Vital Signs: Vital Signs 04/19/22 22:39 Temperature 98 F Pulse Rate 98 H Respiratory 16 Rate Blood Pressure 126/77 [Right] O2 Sat by Pulse 96 Oximetry Physical Exam: GENERAL: The patient is well-developed well-nourished female lying on stretcher not appearing to be in acute distress. [] HEENT: Normocephalic. Atraumatic. Extraocular motions are intact. Patient has moist mucous membranes. NECK: Supple. Trachea midline CHEST/LUNGS: Clear to auscultation. There is no respiratory distress noted. HEART/CARDIOVASCULAR: Regular. There is no tachycardia. There is no gallop rub or murmur. ABDOMEN: Abdomen is soft, with diffuse mild discomfort to palpation. Easily reducible umbilical hernia. There is no rebound or guarding. Patient has normal bowel sounds. There is no abdominal distention. SKIN: There is no rash. There is no edema. There is no diaphoresis. NEURO: The patient is awake, alert, and oriented. The patient is cooperative. The patient has no focal neurologic deficits. The patient has normal speech. GCS MUSCULOSKELETAL: There is no evidence of acute injury. ED Course Vital Signs 04/19/22 22:39 Temperature 98 F Pulse Rate 98 H Respiratory 16 Rate Blood Pressure 126/77 [Right] O2 Sat by Pulse 96 Oximetry ED Medical Decision Making - Lab Data Result diagrams: 04/20/22 09:46 04/20/22 09:46 Laboratory Tests 04/20/22 04/20/22 04/20/22 09:46 09:46 Unknown WBC 5.5 RBC 4.74 Hgb 10.4 Hct 33.1 MCV 70 L MCH 22 L MCHC 31 RDW 23.5 H Plt Count 175 Add Manual Diff Complete Total Counted 100 Seg Neuts % (Manual) 58.0 Band Neutrophils % 0 Lymphocytes % (Manual) 31.0 Reactive Lymphs % (Man) 0 Monocytes % (Manual) 5.0 Eosinophils % (Manual) 5.0 H Basophils % (Manual) 1.0 Metamyelocytes % 0 Myelocytes % 0 Promyelocytes % 0 Blast Cells % 0 Nucleated RBC % Not Reportable Seg Neutrophils # Man 3.2 Band Neutrophils # 0.0 Lymphocytes # (Manual) 1.7 Abs React Lymphs (Man) 0.0 Monocytes # (Manual) 0.3 Eosinophils # (Manual) 0.3 Basophils # (Manual) 0.1 Metamyelocytes # 0.0 Myelocytes # 0.0 Promyelocytes # 0.0 Blast Cells # 0.0 WBC Morphology Not Reportable Hypersegmented Neuts Not Reportable Hyposegmented Neuts Not Reportable Hypogranular Neuts Not Reportable Smudge Cells Not Reportable Toxic Granulation Not Reportable Toxic Vacuolation Not Reportable Dohle Bodies Not Reportable Pelger-Huet Anomaly Not Reportable Fina Rods Not Reportable Platelet Estimate Consistent w auto Clumped Platelets Not Reportable Plt Clumps, EDTA Not Reportable Large Platelets Not Reportable Giant Platelets Not Reportable Platelet Satelliting Not Reportable Plt Morphology Comment Not Reportable RBC Morphology Not Reportable Dimorphic RBCs Not Reportable Polychromasia Not Reportable Hypochromasia 2+ Poikilocytosis Not Reportable Anisocytosis 2+ Microcytosis 1+ Macrocytosis Not Reportable Spherocytes Not Reportable Pappenheimer Bodies Not Reportable Sickle Cells Not Reportable Target Cells Not Reportable Tear Drop Cells Not Reportable Ovalocytes Not Reportable Helmet Cells Not Reportable [place] Bodies Not Reportable [place] Rings Not Reportable [place] Cells Not Reportable Bite Cells Not Reportable Crenated Cell Not Reportable Elliptocytes Not Reportable Acanthocytes (Spur) Not Reportable Rouleaux Not Reportable Hemoglobin C Crystals Not Reportable Schistocytes Not Reportable Malaria parasites Not Reportable Maximiliano Bodies Not Reportable Hem Pathologist Commnt No Sodium 144 Potassium 3.9 Chloride 106.4 Carbon Dioxide 25 Anion Gap 17 BUN 23 H Creatinine 0.8 Estimated GFR > 60 BUN/Creatinine Ratio 29 Glucose 103 H Calcium 9.8 Total Bilirubin 0.40 AST 19 ALT 18 Alkaline Phosphatase 108 Troponin T 0.015 Total Protein 8.9 H Albumin 4.7 Albumin/Globulin Ratio 1.1 Lipase 29 Urine Color Yellow Urine Turbidity Clear Urine pH 5.0 Ur Specific [place] 1.046 H Urine Protein 100 mg/dl Urine Glucose (UA) Neg Urine Ketones Neg Urine Blood Neg Urine Nitrite Neg Urine Bilirubin Neg Urine Urobilinogen < 2.0 Ur Leukocyte Esterase Neg Urine WBC (Auto) 4.0 Urine RBC (Auto) 6.0 U Epithel Cells (Auto) 18.0 H Urine Bacteria (Auto) 4+ Urine Mucus 3+ - Radiology Data Radiology results: report reviewed (CT abdomen pelvis), image reviewed (CT abdomen pelvis) [facility] [address] [place] [address] Cat Scan Report Signed Patient: GÓMEZ PAN MR#: [id number] : 1965 Acct:[id number] Age/Sex: 57 / F ADM Date: 04/19/22 Loc: ED Attending Dr: Ordering Physician: LAINEY RYAN MD Date of Service: 04/20/22 Procedure(s): CT abdomen pelvis w con Accession Number(s): [id number] cc: LAINEY RYAN MD CT ABDOMEN AND PELVIS WITH CONTRAST HISTORY: Diffuse abdominal pain nausea vomiting COMPARISON: None. TECHNIQUE: Axial CT images were obtained through the abdomen and pelvis after 100 cc of Omnipaque 300 IV contrast. Sag ittal and coronal reformatted images. All CT scans at this location are performed using CT dose reduction for ALARA by means of automated exposure control. FINDINGS: CT ABDOMEN: Lung Bases: Clear. Liver: No significant abnormality. Biliary: No significant abnormality. Spleen: No significant abnormality. Unenlarged. Small 1.2 cm cyst or hemangioma is noted in the anterior spleen. Pancreas: No significant abnormality. Adrenals: No significant abnormality. Kidneys: No significant abnormality. Lymphatics: No lymphadenopathy. Vasculature: No significant abnormality. Bowel/Peritoneum: There are a few borderline in thickened and dilated loops of small bowel in the right abdomen measuring up to 3 cm in diameter. This may represent a focal enteritis. No convincing evidence for obstruction. The remaining bowel loops are unremarkable. No evidence for ascites, fluid collection or free air. Normal ap pendix. CT PELVIS: : Mild uterine fibroid disease is identified. The largest fibroid in the left side of the uterus measures 3.7 cm and demonstrates mild calcific degeneration. The adnexa and bladder are unremarkable. Osseous Structures: No significant abnormality. Additional Findings: Small umbilical hernia containing fat without evidence of strangulation. IMPRESSION: Findings suggestive of a mild enteritis as described above. Correlate with the patient's clinical presentation. Mild uterine fibroid disease. Small umbilical hernia containing fat. Signer Name: Chip Chung Jr, MD Signed: 04/20/2022 2:49 PM Workstation Name: [id number] Transcribed By: TTR Dictated By: CHIP CHUNG JR, MD Electronically Authenticated By: CHIP CHUNG JR, MD Signed Date/Time: 04/20/221448 DD/ 44 TD/TT: - Differential Diagnosis Gastritis, gastroenteritis, partial small bowel obstruction, symptomatic ch Critical care attestation.: If time is entered above; I have spent that time in minutes in the direct care of this critically ill patient, excluding procedure time. ED Disposition Clinical Impression: Acute abdominal pain, Enteritis Disposition: 01 HOME / SELF CARE / HOMELESS Is pt being admited?: No Does the pt Need Aspirin: No Condition: Stable Additional Instructions: Return to the emergency department should you develop worsening symptoms, inability to tolerate food or liquids, high fever or any other concerns Prescriptions: HYDROcodone/APAP 5-325 [[place] 5/325] 1 - 2 each PO Q6HR PRN #14 tablet PRN Reason: Pain Metoclopramide [Reglan] 10 mg PO QID PRN #30 tab PRN Reason: Nausea Referrals: ERASMO REED MD [Primary Care Provider] - 3-5 Days FRANCISCO CLAY MD [Staff Physician] - 3-5 Days (Dr. Clay is a bow rehairer. Please follow-up with him for further evaluation) Time of Disposition: 16:30
[2022-04-20 14:15] LABS: Anisocytosis 2+; Hypochromasia 2+; Platelet Estimate Consistent w Auto; Total Cells Counted 100
[2022-04-20 14:42] LABS: Platelet Count 175 K/mm3 (140-440)
--- NOTE | 2022-04-20 14:54 | Cat Scan Report ---
CT ABDOMEN AND PELVIS WITH CONTRAST HISTORY: Diffuse abdominal pain nausea vomiting COMPARISON: None. TECHNIQUE: Axial CT images were obtained through the abdomen and pelvis after 100 cc of Omnipaque 300 IV contrast. Sagittal and coronal reformatted images. All CT scans at this location are performed us ing CT dose reduction for ALARA by means of automated exposure control. FINDINGS: CT ABDOMEN: Lung Bases: Clear. Liver: No significant abnormality. Biliary: No significant abnormality. Spleen: No significant abnormality. Unenlarged. Small 1.2 cm cyst or hemangioma is noted in the ante rior spleen. Pancreas: No significant abnormality. Adrenals: No significant abnormality. Kidneys: No significant abnormality. Lymphatics: No lymphadenopathy. Vasculature: No significant abnormality. Bowel/Peritoneum: There are a few borderline in thickened and dilated loops of small bowel in the rig ht abdomen measuring up to 3 cm in diameter. This may represent a focal enteritis. No convincing evid ence for obstruction. The remaining bowel loops are unremarkable. No evidence for ascites, fluid kelvin ection or free air. Normal appendix. CT PELVIS: : Mild uterine fibroid disease is identified. The largest fibroid in the left side of the uterus me asures 3.7 cm and demonstrates mild calcific degeneration. The adnexa and bladder are unremarkable. Osseous Structures: No significant abnormality. Additional Findings: Small umbilical hernia containing fat without evidence of strangulation. IMPRESSION: Findings suggestive of a mild enteritis as described above. Correlate with the patient's clinical pre sentation. Mild uterine fibroid disease. Small umbilical hernia containing fat. Signer Name: Chip Chung Jr, MD Signed: 04/20/2022 2:49 PM Workstation Name: [id number]
[2022-04-20 15:51] LABS: Bilirubin,Urine NEG (Negative); Blood,Urine NEG (Negative); Color,Urine Yellow (Yellow); Urobilinogen,Urine < 2.0 mg/dL (<2.0)
[2022-04-20 16:02] LABS: Bacteria,Urine 4+ /HPF (Negative); Mucus,Urine 3+ /HPF
[2022-04-20] MEDS ORDERED: METOCLOPRAMIDE 10 MG/2 ML INJ IV ONE (16:27)
[2022-04-20] MEDS ORDERED: HYDROmorphone 1 MG/1 ML INJ IV ONE (16:27)
[2022-04-20] MEDS ORDERED: HYDROcodone/ACETAMINOPHEN 5-325 MG TAB PO ONE (17:28)
[2022-04-20 19:39] VITALS: BP 125/86
== END 2022-04-20 19:39 | disposition home or self-care (01) ==
LOC: ED 22:24
DX: K52.9 Noninfective gastroenteritis and colitis, unspecified (principal); R10.9 Unspecified abdominal pain; I11.0 Hypertensive heart disease with heart failure; I50.9 Heart failure, unspecified; J44.9 Chronic obstructive pulmonary disease, unspecified; I48.91 Unspecified atrial fibrillation; D64.9 Anemia, unspecified; Z98.890 Other specified postprocedural states
CPT/HCPCS: 36415; 74177; 80053; 81001; 83690; 84484; 85007; 85025; 96374; 96375; 99284; J2405; J2765; J3010; J7040; Q9967; J1170